=== PATIENT | female | born 1955 | race Hispanic/Latino ===

== ENCOUNTER 2023-03-09 06:06 | Day surgery (SDC) | payer OTHER ==
[2023-03-02 14:15] LABS: Specific Gravity 1.014 (1.005-1.030); Urine Bacteria None Seen /HPF (<20); Urine Bilirubin NEGATIVE (Negative); Urine Blood 2+ (Negative); Urine Clarity Clear (Clear); Urine Color Light-Yellow (Yellow); Urine Glucose NEGATIVE (Negative); Urine Mucus Slight /HPF (None Seen); Urine Protein NEGATIVE (Negative); Urine RBC 21-50 /HPF (None Seen); Urine Urobilinogen Normal (Normal)
[2023-03-02 14:20] LABS: Absolute Lymphocytes (CBC) 2.1 K/uL (0.7-4.9); Hematocrit 34.3 % (36.0-45.0); Lymphocytes % 23.9 % (15.3-44.8); RBC Red Blood Cell Count 3.86 M/uL (3.86-4.86)
[2023-03-02 14:23] LABS: Protime INR 1.05
[2023-03-02 14:25] LABS: Potassium 3.6 mEq/L (3.5-5.1)
[2023-03-09] MEDS ORDERED: Ringers Lactate 1,000 ML IV ONE (06:33)
[2023-03-09] MEDS ORDERED: CEFAZOLIN SODIUM 2 GM/VIAL ONE (06:33)
[2023-03-09] MEDS ORDERED: MIDAZOLAM HCL 2 MG/2 ML INJ ONE (06:58)
[2023-03-09] MEDS ORDERED: propofoL 200 MG/20 ML VIAL IV ONE (06:58)
[2023-03-09] MEDS ORDERED: FENTANYL CITR 100 MCG/2 ML ONE (06:58)
[2023-03-09] MEDS ORDERED: LIDOCAINE 2% MPF 5 ML VIAL ONE (06:59)
[2023-03-09] MEDS ORDERED: ONDANSETRON 4 MG/2 ML VIAL ONE (06:59)
[2023-03-09] MEDS ORDERED: NEOSTIGMINE 1 MG/ML -10 ML VIAL ONE (07:03)
[2023-03-09] MEDS ORDERED: GLYCOPYRROLATE 0.2 MG/ML SYR ONE (07:03)
[2023-03-09] MEDS ORDERED: ROCURONIUM 50 MG/5 ML VIAL IV ONE (07:03)
[2023-03-09] MEDS ORDERED: VASOPRESSIN 20 UNIT/ML VIAL ONE (07:05)
[2023-03-09] MEDS ORDERED: LIDOCAINE HCL/EPINEPHRINE 20 ML MDV ONE (07:05)
[2023-03-09] MEDS ORDERED: NA CHLORIDE 0.9% 100 ML ONE (07:05)
[2023-03-09] MEDS ORDERED: CEFAZOLIN SODIUM 1 GM/VIAL ONE (07:23)
[2023-03-09] MEDS ORDERED: dexAMETHasone 4 MG/ML VIAL ONE (07:56)
[2023-03-09] MEDS ORDERED: HYDROCODONE/APAP 5/325 MG TAB ONE (10:01)
[2023-03-09 11:35] VITALS: BP 110/64; TEMP 96.5; O2SAT 98
--- NOTE | 2023-03-10 05:53 | OP ---
Date of Procedure: 03/09/2023 Surgeon: Ansley Knutson MD Preoperative Diagnosis: Stress urinary incontinence. Postoperative Diagnosis: Stress urinary incontinence. Procedure Performed: Transobturator single incision, mid urethral sling (Solyx), cystoscopy. Anesthesia: General with LMA. Specimens: No specimens. Complications: No complications. Drains: Sorensen catheter and vaginal packing. Findings: Cystoscopy unremarkable. No evidence of any foreign body or trauma to the wall. Sling wa s well positioned and wall tensioned. Condition: Stable. Indications: The patient is a 67-year-old lady with stress urinary incontinence. After examination in the office, we discussed with her all options of treatment of JESSI and including weight loss, pelvi c floor exercises, and surgical options. The patient wanted to proceed with the surgical options of . No other vaginal prolapse symptoms were present or reported. Procedure In Detail: After explaining the benefits and risks of procedure, she was taken back to the OR in the preoperative area. She was re-consented. After positioning the patient in supine fashion on the operating table, she was given general anesthe michelle and placed in a dorsal lithotomy position using Heath stirrups. Lower abdomen, vulva, vagina, an d perineum and medial thighs were prepped with Betadine and draped in a sterile fashion. Sorensen was p laced to drain the bladder and clamped with a Gabby clamp and retracted superiorly. Mid urethral are a was picked up and an incision was made through the skin in all skin layers and the subcutaneous tis sues passed the fascia. On both sides, a 1 to 1.5 cm incision was made in order for me to visualize the underlying fascia. The urethra was palpable through it. After dilute vasopressin was injected, a 15 blade was used to make an incision underneath the fascia. The incision was dissected using Metzenbaum scissors all the way to the level of the inferior pubic ramus and once transobturator space was entered, the tips were opened up on the right side and the l eft side the vaginal epithelium. There was no evidence of any trauma buttonholing. The similar incision, sling was taken and lowered up after soaking it in antibiotic solution with Anc ef. Then, the mold press operator was brought to the opening and laid flat on the tract that was created and af ter I passed inferior to the inferior pubic ramus into the obturator space, then 2 pops were felt ___ positioning hook was attached in the proper place, tensioning was checked in the mid urethral area using suction, irrigation and atraumatic graspers. The tension was checked by sling was made with the help of a 3-0 silk stitch. This was also irrigated and cut. After thorough irrig ation in the area, cystoscopy was performed. Cystoscopy: A 30-degree lens, normal saline were used after entering the bladder gan of the bladder were well visualized. No evidence of any trauma or foreign body. The bladder was drain ed, Sorensen was replaced, and vaginal incision was closed with the help of 3-0 Vicryl in a continuous r unning locked fashion. Once this was done, the instruments were removed. Instrument, needle, sponge counts correct at the end of the case. The patient tolerated the procedure well. She was recovered from anesthesia and taken to the PACU in stable condition. The patient did not have a family member that came with her and so no discussion was done. However, a voiding trial was done with her and she was left with vaginal packing and Sorensen. In 2 hours, there was retrograde filling for the Sorensen that was done and tried a voiding trial. The patient was able to urinate over 250 and had residual that is 87, so she was discharged home with instructions to call if there are any bleeding problems. She has a 1 week followup appointment. LILIBETH/TRINY Voice ID: [id number] Report ID: [id number]
== END 2023-03-09 13:00 | disposition home or self-care (01) ==
LOC: OR 06:06
PROVIDERS: ATTEND Obstetrics & Gynecology
PROC: 0TSD0ZZ Reposition Urethra, Open Approach (ICD-10-PCS; principal; 2023-03-09 07:30)
DX: N39.3 Stress incontinence (female) (male) (principal); N39.9 Disorder of urinary system, unspecified
CPT/HCPCS: 85025; 81001; 80048; 36415; 86900; 86850; 85610; 86901; 85730; 57288; J2704; J1100; J2710; J2001; J2250; J3010; J2405; J7120; J0690